=== PATIENT | male | born 1940 | race Caucasian/White ===

== ENCOUNTER 2020-03-11 00:52 | Inpatient (IN) | payer MEDICARE ==
[2020-03-11] MEDS ORDERED: SODIUM CHLORIDE 0.9% 500 ML 500 ML IV STA (01:34)
[2020-03-11 02:12] LABS: Albumin 5.2 g/dL (3.5-5.0); Calcium 10.5 mg/dL (8.4-10.2); Magnesium 2.5 mg/dL (1.6-2.3); Potassium 3.9 mmol/L (3.5-5.1); Total Bilirubin 1.9 mg/dL (0.2-1.3); Total Protein 8.8 g/dL (6.3-8.2)
--- NOTE | 2020-03-11 02:20 | XR ---
EXAMINATION TYPE: XR KUB DATE OF EXAM: 03/11/2020 COMPARISON: NONE HISTORY: Pain TECHNIQUE: 3 views FINDINGS: There are multiple intestinal fluid levels in the midabdomen there is mostly small bowel. I see no evidence of free air. Lung bases are clear of consolidation. There are no pathologic calcific ations over the kidneys. There is a relative lack of large bowel gas. IMPRESSION: Intestinal fluid levels are suggestive of small bowel mechanical obstruction. No free air .
[2020-03-11 02:21] LABS: HCT 49.4 % (39.0-53.0); HGB 16.6 gm/dL (13.0-17.5); MCH 30.6 pg (25.0-35.0); MCHC 33.7 g/dL (31.0-37.0); Mean Platelet Volume 7.2; Platelet Count 251 k/uL (150-450); RBC 5.43 m/uL (4.30-5.90); RDW 12.6 % (11.5-15.5); WBC 20.8 k/uL (3.8-10.6)
[2020-03-11] MEDS ORDERED: SODIUM CHLORIDE 0.9% 1,000 ML IV ONE (02:39)
[2020-03-11] MEDS ORDERED: SODIUM CHLORIDE 0.9% 500 ML 500 ML IV ONE (02:41)
[2020-03-11] MEDS ORDERED: LIDOCAINE URO-JET JELLY 2% 5 ML KIT URETHRAL ONE (02:41)
[2020-03-11] MEDS ORDERED: NALOXONE 0.4 MG/ML 1 ML VIAL IV PRN (02:42)
[2020-03-11] MEDS ORDERED: ONDANSETRON 4 MG/2 ML VIAL IVP PRN (02:42)
--- NOTE | 2020-03-11 02:59 | ED ---
General Adult HPI - General Chief complaint: Nausea/Vomiting/Diarrhea Stated complaint: Body Cramps,Vomiting Time Seen by Provider: 03/11/20 01:06 Source: patient, RN notes reviewed, old records reviewed Mode of arrival: ambulatory Limitations: no limitations - History of Present Illness Initial comments: 79-year-old male patient past history of multiple abdominal surgeries most recently a mesh revision in 2018 presents to ED for chief complaint nausea v omiting muscle cramps since Wednesday. Patient reports that he did have a small bowel movement today and had a little bit of nausea and vomiting earlier today. Denies any chest pain or shortness of breath. Denies any fevers or chills. Systemic: Pt denies fatigue, fever/chills, rash. Pt denies weakness, night sweats, weight loss. Neuro: Pt denies headache, visual disturbances, syncope or pre-syncope. HEENT: Pt denies ocular discharge or irritation, otalgia, rhinorrhea, pharyngitis or notable lymphadenopathy. Cardiopulmonary: Pt denies chest pain, SOB, heart palpitations, dyspnea on exertion. : Pt denies dysuria, burning w/ urination, frequency/urgency. Denies new onset urinary or bowel incontinence. MSK: Pt denies myalgia, loss of strength or function in extremities. Neuro: Pt denies new onset weakness, paresthesias. - Related Data Allergies Allergy/AdvReac Type Severity Reaction Status Date / Time No Known Allergies Allergy Verified 03/11/20 01:05 Review of Systems ROS Statement: Those systems with pertinent positive or pertinent negative responses have been documented in the HPI. ROS Other: All systems not noted in ROS Statement are negative. Past Medical History History of Any Multi-Drug Resistant Organisms: None Reported Past Surgical History: Cholecystectomy Additional Past Surgical History / Comment(s): abdominal surgery Past Psychological History: No Psychological Hx Reported Smoking Status: Current some day smoker Past Alcohol Use History: Occasional Past Drug Use History: None Reported General Exam - General Exam Comments Initial Comments: Constitutional: NAD, AOX3, Pt has pleasant affect. HEENT: NC/AT, trachea midline, neck supple, no lymphadenopathy. External ears appear normal, without discharge. Mucous membranes moist. Eyes PERRLA, EOM intact. There is no scleral icterus. No pallor noted. Cardiopulmonary: RRR, no murmurs, rubs or gallops, no JVD noted. Lungs CTAB in anterior and posterior salgado. No peripheral edema. Abdominal exam: Abdomen soft and mildly distended. Abdomen non-tender to palpation in all 4 quadrants. No hepatosplenomegaly. No ecchymosis Neuro: CN II-XII grossly intact. No nuchal rigidity. No raccon eyes, no hanna sign, no hemotympanum. No cervical spinal tenderness. MSK: Full active ROM in upper and lower extremities, 5/5 stregnth. Limitations: no limitations Course Vital Signs 03/11/20 00:58 Temperature 97.8 F Pulse Rate 107 H Respiratory 18 Rate Blood Pressure 105/64 O2 Sat by Pulse 98 Oximetry Medical Decision Making - Medical Decision Making 79-year-old male patient past history of multiple abdominal surgeries most recently a mesh revision in 2018 presents to ED for chief complaint nausea vomiting muscle cramps since Wednesday. Patient reports that he did have a small bowel movement today and had a little bit of nausea and vomiting earlier today. Denies any chest pain or shortness of breath. Denies any fevers or chills. Patient vital signs are stable, afebrile. Physical exam displayed mildly distended abdomen. Laboratory investigations do reveal leukocytosis of 20.8. Mild hyponatremia mild a K I likely prerenal in nature. Mildly elevated calcium magnesium bilirubin. KUB is suggestive of small bowel mechanical obstruction. EKG is nonischemic. NG tube placed. Patient will be admitted for further evaluation. Case discussed with Dr. Braxton. - Lab Data Result diagrams: 03/11/20 01:53 03/11/20 01:53 Lab Results 03/11/20 03/11/20 03/11/20 Range/Units 01:53 01:53 01:53 WBC 20.8 H (3.8-10.6) k/uL RBC 5.43 (4.30-5.90) m/uL Hgb 16.6 (13.0-17.5) gm/dL Hct 49.4 (39.0-53.0) % MCV 91.0 (80.0-100.0) fL MCH 30.6 (25.0-35.0) pg MCHC 33.7 (31.0-37.0) g/dL RDW 12.6 (11.5-15.5) % Plt Count 251 (150-450) k/uL Sodium 131 L (137-145) mmol/L Potassium 3.9 (3.5-5.1) mmol/L Chloride 88 L (98-107) mmol/L Carbon Dioxide 28 (22-30) mmol/L Anion Gap 15 mmol/L BUN 36 H (9-20) mg/dL Creatinine 1.40 H (0.66-1.25) mg/dL Est GFR (CKD-EPI)AfAm 56 (>60 ml/min/1.73 sqM) Est GFR (CKD-EPI)NonAf 48 (>60 ml/min/1.73 sqM) Glucose 157 H (74-99) mg/dL Calcium 10.5 H (8.4-10.2) mg/dL Magnesium 2.5 H (1.6-2.3) mg/dL Total Bilirubin 1.9 H (0.2-1.3) mg/dL AST 33 (17-59) U/L ALT 34 (4-49) U/L Alkaline Phosphatase 136 H (38-126) U/L Troponin I <0.012 (0.000-0.034) ng/mL Total Protein 8.8 H (6.3-8.2) g/dL Albumin 5.2 H (3.5-5.0) g/dL Lipase 79 (23-300) U/L - EKG Data -: EKG Interpreted by Me (and Dr. Braxton ) EKG Comments: Ventricular rate 99, AK interval 180, QRS 92, QT/QTC 378/485.Normal sinus rhythm, normal EKG no concern for acute ischemia. Disposition Clinical Impression: Small bowel obstruction Disposition: ADMITTED IP TO THIS [facility] Condition: Serious Is patient prescribed a controlled substance at d/c from ED?: No Referrals: Nonstaff,Physician [Primary Care Provider] - 1-2 days
[2020-03-11 03:02] LABS: Band Neutrophils % 9 %; Lymphocytes # (M) 1.04 k/uL (1.0-4.8); Monocytes # (M) 1.25 k/uL (0-1.0); Neutrophils % (M) 80 %; Nucleated Red Blood Cells 0 /100 WBC (0-0); Total Cells Counted 100
[2020-03-11 03:03] LABS: Toxic Granulation Present; Toxic Vacuolation Present
[2020-03-11] MEDS: SODIUM CHLORIDE 0.9% 1,000 ML IV SCH ×3 (03:24→18:21)
[2020-03-11] MEDS: MORPHINE SULFATE 4 MG/ML SYRINGE IV PRN ×2 (04:53→07:57)
[2020-03-11] MEDS: PANTOPRAZOLE 40 MG/10 ML VIAL IV SCH (07:33)
[2020-03-11 08:48] LABS: Appearance,Urine Cloudy (Clear); Bacteria,Urine Rare /hpf; Bilirubin,Urine 1+ (Negative); Blood,Urine Negative (Negative); Color,Urine Yellow; Glucose,Urine (UA) Negative (Negative); Hyaline Casts,Urine 48 /lpf (0-2); Ketones,Urine Negative (Negative); Leukocyte Esterase,Urine Trace (Negative); Mucus,Urine Occasional /hpf; Nitrite,Urine Negative (Negative); Protein,Urine Trace (Negative); RBC,Urine 1 /hpf (0-5); Specific Gravity,Urine 1.026 (1.001-1.035); Squamous Epithelial Cell,Urine 1 /hpf (0-4); Urobilinogen,Urine <2.0 mg/dL (<2.0); WBC,Urine 3 /hpf (0-5)
--- NOTE | 2020-03-11 11:02 | P.GSCN ---
History of Present Illness Consult date: 03/11/20 History of present illness: CHIEF COMPLAINT: Abdominal pain with vomiting 3 days HISTORY OF PRESENT ILLNESS: This is a 79-year-old male with a past medical history of multiple abdominal surgeries. He has a history of diverticulitis with bowel resection in 2000, bowel perforation with prior colostomy and reversal, 6 abdominal hernia status post surgical repair with mesh placement. He also has a history of nicotine dependence and GERD. Patient reports a 3 day history of abdominal pain and cramping with vomiting. He reports vomiting about 2 gallons on Wednesday. Therefore, patient came into the ER for further evaluation and treatment. KUB x-ray showing intestinal fluid level suggestive of a small bowel obstruction. Patient had NG tube placed in the ER. Contents from NG tube is dark green. He was admitted to the hospital for possible small bowel obstruction. PAST MEDICAL HISTORY: See list. PAST SURGICAL HISTORY: See list. MEDICATIONS: See list. ALLERGIES: See list. SOCIAL HISTORY: No illicit drug use. REVIEW OF SYSTEMS: CONSTITUTIONAL: Denies fever or chills. HEENT: Denies blurred vision, vision changes, or eye pain. Denies hemoptysis CARDIOVASCULAR: Denies chest pain or pressure. RESPIRATORY: No shortness of breath. GASTROINTESTINAL: See HPI for pertinent findings HEMATOLOGIC: Denies bleeding disorders. GENITOURINARY: Denies any blood in urine or increased urinary frequency. SKIN: Denies pruitis. Denies rash. PHYSICAL EXAM: VITAL SIGNS: Reviewed GENERAL: Well-developed in no acute distress. HEENT: No sclera icterus. Extraocular movements grossly intact. Moist buccal mucosa. Head is atraumatic, normocephalic. No nasal drainage. ABDOMEN: Soft. Distended. Diffuse tenderness with palpation. Old surgical scar healed NEUROLOGIC: Alert and oriented. Cranial nerves II through XII grossly intact. LABORATORY DATA: WBC 20.8, hemoglobin 16.6, platelets 251, creatinine 1.30 IMAGING: KUB x-ray showing intestinal fluid levels suggestive of small bowel obstruction. No free air ASSESSMENT: 1. Abdominal pain with vomiting likely related to a possible small bowel obstruction. X-ray showing intestinal fluid levels in the mid abdomen suggested of small bowel obstruction. 2. Leukocytosis 3. Dehydration 4. Prior history of multiple abdominal surgeries 5. Nicotine dependence PLAN: 1. Check computed tomography scan of abdomen and pelvis with oral contrast only due to elevated creatinine to further evaluate possible small bowel obstruction 2. Continue NG tube 3. Keep patient nothing by mouth 4. Agree with starting IV Zosyn 5. Continue IV fluid hydration Thank you for this consultation and allowing us to participate in this patient's care. Physician Tanning Consultant note has been reviewed by physician. Signing provider agrees with the documented findings, assessment, and plan of care. Past Medical History History of Any Multi-Drug Resistant Organisms: None Reported Past Surgical History: Cholecystectomy Additional Past Surgical History / Comment(s): abdominal surgery Past Anesthesia/Blood Transfusion Reactions: No Reported Reaction Past Psychological History: No Psychological Hx Reported Smoking Status: Current some day smoker Past Alcohol Use History: Occasional Past Drug Use History: None Reported Medications and Allergies Home Medications Medication Instructions Recorded Confirmed Type Cetirizine HCl [Zyrtec] 10 mg PO DAILY PRN 03/11/20 03/11/20 History Magnesium Oxide 400 mg PO DAILY 03/11/20 03/11/20 History Omeprazole 20 mg PO DAILY 03/11/20 03/11/20 History Sennosides [Senna] 8.6 mg PO DAILY 03/11/20 03/11/20 History Vitamin B Complex 1 tab PO DAILY 03/11/20 03/11/20 History Allergies Allergy/AdvReac Type Severity Reaction Status Date / Time No Known Allergies Allergy Verified 03/11/20 01:05 Surgical - Exam Vital Signs Temp Pulse Resp BP Pulse Ox 97.8 F 107 H 18 105/64 98 03/11/20 00:58 03/11/20 00:58 03/11/20 00:58 03/11/20 00:58 03/11/20 00:58 Results - Labs 03/11/20 01:53 03/11/20 01:53 Abnormal Lab Results - Last 24 Hours (Table) 03/11/20 03/11/20 03/11/20 Range/Units 01:53 01:53 08:00 WBC 20.8 H (3.8-10.6) k/uL Neutrophils # (Manual) 18.50 H (1.3-7.7) k/uL Monocytes # (Manual) 1.25 H (0-1.0) k/uL Sodium 131 L (137-145) mmol/L Chloride 88 L (98-107) mmol/L BUN 36 H (9-20) mg/dL Creatinine 1.40 H (0.66-1.25) mg/dL Glucose 157 H (74-99) mg/dL Calcium 10.5 H (8.4-10.2) mg/dL Magnesium 2.5 H (1.6-2.3) mg/dL Total Bilirubin 1.9 H (0.2-1.3) mg/dL Alkaline Phosphatase 136 H (38-126) U/L Total Protein 8.8 H (6.3-8.2) g/dL Albumin 5.2 H (3.5-5.0) g/dL Urine Protein Trace H (Negative) Urine Bilirubin 1+ H (Negative) Ur Leukocyte Esterase Trace H (Negative) Urine Bacteria Rare H (None) /hpf Hyaline Casts 48 H (0-2) /lpf Urine Mucus Occasional H (None) /hpf Diabetes panel 03/11/20 Range/Units 01:53 Sodium 131 L (137-145) mmol/L Potassium 3.9 (3.5-5.1) mmol/L Chloride 88 L (98-107) mmol/L Carbon Dioxide 28 (22-30) mmol/L BUN 36 H (9-20) mg/dL Creatinine 1.40 H (0.66-1.25) mg/dL Glucose 157 H (74-99) mg/dL Calcium 10.5 H (8.4-10.2) mg/dL AST 33 (17-59) U/L ALT 34 (4-49) U/L Alkaline Phosphatase 136 H (38-126) U/L Total Protein 8.8 H (6.3-8.2) g/dL Albumin 5.2 H (3.5-5.0) g/dL Calcium panel 03/11/20 Range/Units 01:53 Calcium 10.5 H (8.4-10.2) mg/dL Albumin 5.2 H (3.5-5.0) g/dL Pituitary panel 03/11/20 Range/Units 01:53 Sodium 131 L (137-145) mmol/L Potassium 3.9 (3.5-5.1) mmol/L Chloride 88 L (98-107) mmol/L Carbon Dioxide 28 (22-30) mmol/L BUN 36 H (9-20) mg/dL Creatinine 1.40 H (0.66-1.25) mg/dL Glucose 157 H (74-99) mg/dL Calcium 10.5 H (8.4-10.2) mg/dL Adrenal panel 03/11/20 Range/Units 01:53 Sodium 131 L (137-145) mmol/L Potassium 3.9 (3.5-5.1) mmol/L Chloride 88 L (98-107) mmol/L Carbon Dioxide 28 (22-30) mmol/L BUN 36 H (9-20) mg/dL Creatinine 1.40 H (0.66-1.25) mg/dL Glucose 157 H (74-99) mg/dL Calcium 10.5 H (8.4-10.2) mg/dL Total Bilirubin 1.9 H (0.2-1.3) mg/dL AST 33 (17-59) U/L ALT 34 (4-49) U/L Alkaline Phosphatase 136 H (38-126) U/L Total Protein 8.8 H (6.3-8.2) g/dL Albumin 5.2 H (3.5-5.0) g/dL
[2020-03-11] MEDS: PIPERACILLIN-TAZOBACTAM 3.375 GM in SODIUM CHLORIDE 0.9% 100 ML IVPB SCH ×2 (11:18→18:21)
[2020-03-11] MEDS: IOPAMIDOL CONTRAST (ORAL USE) VIAL PO PRN ×2 (11:19→12:34)
--- NOTE | 2020-03-11 13:47 | CT ---
EXAMINATION TYPE: CT abdomen pelvis wo con DATE OF EXAM: 03/11/2020 HISTORY: Generalized pain, assess for possible bowel obstruction CT DLP: 776.3 mGycm. Automated Exposure Control for Dose Reduction was Utilized. TECHNIQUE: CT scan of the abdomen and pelvis is performed with oral but without IV contrast. COMPARISON: Abdominal x-ray earlier today FINDINGS: Within the limitations of a non-contrast study, the following observations are made. LUNG BASES: Mild to moderate bibasilar linear scarring and/or atelectasis. LIVER/GB: Gallbladder not seen and presumed surgically absent. Mild to moderate extra hepatic biliary dilatation up to 17 mm near estella hepatis with some tapering towards the ampulla. No significant int rahepatic biliary dilatation. PANCREAS: No significant abnormality is seen. SPLEEN: No significant abnormality is seen. ADRENALS: No significant abnormality is seen. KIDNEYS: Irregular lobulated 8 mm calcification left kidney upper to mid pole level axial image 42. F avor dystrophic calcification over nonobstructing left renal calculus. Mild to moderate perinephric f luid bilaterally. Findings likely an basis of chronic medical renal disease. Cortical thinning in bot h kidneys. No hydronephrosis seen bilaterally. BOWEL: Surgical sutures from anastomosis distal colonic level axial image 75. A few scattered colonic diverticula. No CT evidence for acute diverticulitis. Contrast fills visualized esophagus which has some [id number] concentric wall thickening along with stomach. No suspicious dilatation of stomach or duodenal sweep. Abnormal positioning of the liga ment of [place] which does not ascend to the level of gastric antrum. Findings consistent with underly ing malrotation. There is contrast prominent and then some dilated jejunal loops in the central and left abdomen. Ther e appears to be vertical scar with thinning of the anterior abdominal wall. Small hernia defects cont aining fat noted for reference left of midline axial image 36. There is additional focal defect conta ining small bowel loop along with fat and mesenteric vessels in the inferior midline axial image 11. Finally there is hernia defect containing prominent small bowel loop with air contrast level axial im age 60. There is abrupt transition into nondistended bowel loop at this level. Remainder of small and large bowel is nonopacified and nondilated GENITAL ORGANS: Upper limits of normal in size. Scattered pelvic phleboliths. LYMPH NODES: No greater than 1cm abdominal or pelvic lymph nodes are appreciated. OSSEOUS STRUCTURES: Mild to moderate multilevel spurring in the spine. OTHER: Moderate calcified plaque of the aorta extends into branch vessels. Surgical clips right groin region. IMPRESSION: Findings consistent with at least high-grade mid small bowel obstruction as there is rosas sition point along the inferior right aspect of the vertical scar consistent with underlying incision al hernia. At minimum radiographic progress studies are advised. Surgical consultation advised if has not been performed.
[2020-03-11] MEDS ORDERED: DEXAMETHASONE SOD PHOSPHATE 10 MG/ML 1 ML VIAL IV ONE (17:32)
[2020-03-11] MEDS ORDERED: LIDOCAINE 1% (10MG/ML) FOR IV START INTRADERMA PRN (17:32)
[2020-03-11] MEDS ORDERED: LACTATED RINGERS 1,000 ML IV SCH (17:45)
[2020-03-11 20:41] VITALS: RESP 18; TEMP 97.9
--- NOTE | 2020-03-11 22:03 | P.HPIM ---
History of Present Illness H&P Date: 03/11/20 Chief Complaint: Abdominal Pain Patient is a 79-year-old male with a known history of cholecystectomy, abdominal ventral hernia and history of mesh placement and hernia repair, previous history of multiple abdominal surgeries including diverticulitis with bowel resection in 2000, bowel perforation with prior colostomy and reversal., And currently everyday smoker presents to ER With the complaints of abdominal pain along with nausea and vomiting for the past 3 days. Patient states that he had a small bowel movement yesterday. He also had large vomiting yesterday. Patient presents to ER for further evaluation. KUB x-ray in the ER showed intestinal air-fluid level suggestive of small bowel obstruction. Laboratory data showed WBC 20.8, hemoglobin 16.6, platelets 241 Sodium 131, potassium 3.9, chloride 88, BUN 36 and creatinine 1.4 Calcium 10.5, magnesium 2.5, AST 33, ALT 34, alk phos 136 urinalysis showed cloudy and nitrite negative, trace leukocyte esterase RBCs 1 and WBCs 3 and hyaline casts. Review of Systems Constitutional: Patient denies any fever or chills . No generalized weakness or weight loss. Abdomen: Patient does have cramping abdominal pain associate with nausea and vomiting. No diarrhea. . Cardiovascular: Patient denies any chest pain or short of breath no palpitations. Respiratory: patient denied any cough is from production. No shortness of breath Neurologic: Patient denied any numbness or tingling headache. Musculoskeletal: Patient denies any complaints of joint swelling or deformity. Skin: Negative Psychiatric: Negative Endocrine: No heat or cold intolerance. No recent weight gain. Genitourinary: No dysuria or hematuria. All other 14 point ROS negative except the above Past Medical History History of Any Multi-Drug Resistant Organisms: None Reported Past Surgical History: Cholecystectomy Additional Past Surgical History / Comment(s): abdominal surgery Past Anesthesia/Blood Transfusion Reactions: No Reported Reaction Past Psychological History: No Psychological Hx Reported Smoking Status: Current some day smoker Past Alcohol Use History: Occasional Past Drug Use History: None Reported Medications and Allergies Home Medications Medication Instructions Recorded Confirmed Type Cetirizine HCl [Zyrtec] 10 mg PO DAILY PRN 03/11/20 03/11/20 History Magnesium Oxide 400 mg PO DAILY 03/11/20 03/11/20 History Omeprazole 20 mg PO DAILY 03/11/20 03/11/20 History Sennosides [Senna] 8.6 mg PO DAILY 03/11/20 03/11/20 History Vitamin B Complex 1 tab PO DAILY 03/11/20 03/11/20 History Allergies Allergy/AdvReac Type Severity Reaction Status Date / Time No Known Allergies Allergy Verified 03/11/20 01:05 Physical Exam Vitals: Vital Signs Temp Pulse Pulse Resp BP BP Pulse Ox 03/11/20 08:43 18 03/11/20 05:28 100 18 03/11/20 03:20 97.8 F 103 H 18 136/70 95 03/11/20 03:12 97.8 F 100 18 145/76 98 03/11/20 00:58 97.8 F 107 H 18 105/64 98 Intake and Output 03/10/20 03/11/20 03/11/20 22:59 06:59 14:59 Intake Total 380 Output Total 700 Balance -320 Intake: Intake, IV Titration 380 Amount Sodium Chloride 0.9% 1, 380 000 ml @ 130 mls/hr IV . Q7H42M [facility] Rx#:[id number] Output: Gastric Drainage 700 Other: Voiding Method Urinal Weight 90.718 kg PHYSICAL EXAMINATION: Patient is lying in the bed comfortably, no acute distress, awake alert and oriented.. HEENT: Normocephalic. Neck is supple. Pupils reactive. Nostrils clear. Oral cavity is moist. Ears reveal no drainage. Neck reveals no JVD, carotid bruits, or thyromegaly. CHEST EXAMINATION: Trachea is central. Symmetrical expansion. Lung salgado clear to auscultation and percussion. CARDIAC: Normal S1, S2 with no gallops. No murmurs ABDOMEN: Soft. Bowel sounds diminished,Patient does have midline surgical scar and ventral hernia noted. Nontender. . No organomegaly. No abdominal bruits. Extremities: reveal no edema. No clubbing or cyanosis Neurologically awake, alert, oriented x3 with well-coordinated movements. No focal deficits noted Skin: No rash or skin lesions. Psychiatric: Coperative. Nonsuicidal Musculoskeletal: No joint swelling or deformity. Normal range of motion. Results CBC & Chem 7: 03/11/20 01:53 03/11/20 01:53 Labs: Abnormal Lab Results - Last 24 Hours (Table) 03/11/20 03/11/20 03/11/20 Range/Units 01:53 01:53 08:00 WBC 20.8 H (3.8-10.6) k/uL Neutrophils # (Manual) 18.50 H (1.3-7.7) k/uL Monocytes # (Manual) 1.25 H (0-1.0) k/uL Sodium 131 L (137-145) mmol/L Chloride 88 L (98-107) mmol/L BUN 36 H (9-20) mg/dL Creatinine 1.40 H (0.66-1.25) mg/dL Glucose 157 H (74-99) mg/dL Calcium 10.5 H (8.4-10.2) mg/dL Magnesium 2.5 H (1.6-2.3) mg/dL Total Bilirubin 1.9 H (0.2-1.3) mg/dL Alkaline Phosphatase 136 H (38-126) U/L Total Protein 8.8 H (6.3-8.2) g/dL Albumin 5.2 H (3.5-5.0) g/dL Urine Protein Trace H (Negative) Urine Bilirubin 1+ H (Negative) Ur Leukocyte Esterase Trace H (Negative) Urine Bacteria Rare H (None) /hpf Hyaline Casts 48 H (0-2) /lpf Urine Mucus Occasional H (None) /hpf Thrombosis Risk Factor Assmnt - DVT/VTE Prophylaxis DVT/VTE Prophylaxis: Pharmacologic Prophylaxis ordered - Choose All That Apply Any of the Below Risk Factors Present?: No Other Risk Factors: Yes Each Risk Factor Represents 2 Points: Age 61-74 years Thrombosis Risk Factor Assessment Total Risk Factor Score: 2 Thrombosis Risk Factor Assessment Level: Low Risk Assessment and Plan Assessment: Abdominal pain secondary to small bowel obstruction Nausea and vomiting secondary to above. History of diverticulitis with bowel resection History of bowel perforation status post resection and colostomy bag and reversal Multiple abdominal surgeries including hernia repair History of cholecystectomy Leukocytosis with WBC count 20.8 Hypovolemic hyponatremia Dehydration volume depletion Mild acute kidney injury likely prerenal Ongoing nicotine addiction DVT prophylaxis with heparin subcu Plan: Patient will be continued on IV hydration and NG tube was placed. Continue with bowel rest and symptomatic management for nausea and vomiting. Continue with pain management. General surgery was consulted. CT of the abdomen pelvis was ordered to rule out any bowel perforation in view of leukocytosis and patient was tachycardic on admission. Empiric antibiotics in the form of Zosyn. Discussed with the patient's daughter and son via video chat and by phone several times and also discussed with the surgical team. Time with Patient: Greater than 30
[2020-03-12] MEDS: PIPERACILLIN-TAZOBACTAM 3.375 GM in SODIUM CHLORIDE 0.9% 100 ML IVPB SCH ×2 (02:59→12:58)
[2020-03-12] MEDS: SODIUM CHLORIDE 0.9% 1,000 ML IV SCH ×2 (03:01→08:47)
[2020-03-12 05:59] VITALS: BP 124/64; PULSE 65
[2020-03-12 08:30] LABS: Albumin 3.6 g/dL (3.5-5.0); Basophils % (A) 0 %; Calcium 8.4 mg/dL (8.4-10.2); Eosinophils # (A) 0.3 k/uL (0-0.7); Eosinophils % (A) 4 %; HCT 38.5 % (39.0-53.0); Lymphocytes # (A) 1.6 k/uL (1.0-4.8); Lymphocytes % (A) 22 %; MCH 30.6 pg (25.0-35.0); MCHC 32.9 g/dL (31.0-37.0); Mean Platelet Volume 7.5; Monocytes # (A) 0.5 k/uL (0-1.0); Monocytes % (A) 8 %; Neutrophils # (A) 4.4 k/uL (1.3-7.7); Neutrophils % (A) 64 %; Platelet Count 171 k/uL (150-450); RBC 4.14 m/uL (4.30-5.90); RDW 12.5 % (11.5-15.5); Total Bilirubin 2.1 mg/dL (0.2-1.3); Total Protein 6.2 g/dL (6.3-8.2); WBC 6.9 k/uL (3.8-10.6)
[2020-03-12 08:33] LABS: HGB 12.7 gm/dL (13.0-17.5)
[2020-03-12] MEDS: PANTOPRAZOLE 40 MG/10 ML VIAL IV SCH (08:42)
== END 2020-03-12 15:21 | disposition short-term general hospital (02) | DRG 389 ==
LOC: EC 00:52 → 5NMEDONC 02:44
PROVIDERS: ADMIT Hospitalist; ATTEND Hospitalist
PROC: 0D9670Z Drainage of Stomach with Drainage Device, Via Natural or Artificial Opening (ICD-10-PCS; principal; 2020-03-11)
DX: K56.609 Unspecified intestinal obstruction, unspecified as to partial versus complete obstruction (principal); E87.1 Hypo-osmolality and hyponatremia; N17.9 Acute kidney failure, unspecified; F17.200 Nicotine dependence, unspecified, uncomplicated; D72.829 Elevated white blood cell count, unspecified; E86.1 Hypovolemia; E86.0 Dehydration; R00.0 Tachycardia, unspecified; K21.9 Gastro-esophageal reflux disease without esophagitis; Z79.899 Other long term (current) drug therapy; Z20.828 Contact with and (suspected) exposure to other viral communicable diseases; Z90.49 Acquired absence of other specified parts of digestive tract; Z98.890 Other specified postprocedural states; Z87.19 Personal history of other diseases of the digestive system
CPT/HCPCS: 36415; 74018; 74176; 80053; 81001; 83690; 83735; 84484; 85025; 87635; 93005; 96360; 99285